=== PATIENT | female | born 1970 | race African-American/Black ===

== ENCOUNTER 2021-12-27 13:21 | Outpatient (CLI) | payer BC | END 2021-12-27 13:22 | disposition home or self-care (01) | LOC: CSHMAMMO 13:21 | PROVIDERS: ATTEND Family Medicine | DX: Z12.31 Encounter for screening mammogram for malignant neoplasm of breast (principal) | CPT/HCPCS: 77063; 77067 ==

== ENCOUNTER 2022-12-21 22:16 | Observation (INO) | payer BC ==
[2022-12-21] MEDS ORDERED: Calcium Carbonate 500 MG ChewTAB PO PRN (22:49)
[2022-12-21] MEDS ORDERED: HYDROcodone/Acetaminophen 5/325 mg Tablet PO PRN (22:49)
[2022-12-21] MEDS ORDERED: Ondansetron PF 4 MG/2 ML Vial IVP PRN (22:49)
[2022-12-21] MEDS ORDERED: Acetaminophen 325 MG TAB PO PRN (22:49)
[2022-12-21] MEDS ORDERED: Senokot S 8.6-50 MG TAB PO PRN (22:49)
[2022-12-21] MEDS ORDERED: Lactated Ringer's 500 ML IV SCH (23:00)
[2022-12-21 23:08] VITALS: BMI 28.8
[2022-12-22 04:52] LABS: Anion Gap 14 mmol/L (10-20); BUN (Urea Nitrogen) 7 mg/dL (9.8-20.1); Calc. Creatinine Clearance 106 mL/min (70-130); Calcium 9.2 mg/dL (7.8-10.44); Carbon Dioxide 21 mmol/L (22-29); Chloride 107 mmol/L (98-107); Estimated GFR 100; Glucose 86 mg/dL (70-105); Magnesium 1.9 mg/dL (1.6-2.6); Potassium 3.7 mmol/L (3.5-5.1); Sodium 138 mmol/L (136-145)
[2022-12-22 05:13] LABS: Free T4 (Free Thyroxine) 1.05 ng/dL (0.70-1.48); Thyroid Stimulating Hormone 1.8515 uIU/mL (0.35-4.94)
[2022-12-22] MEDS ORDERED: Apixaban 5 MG TAB PO SCH (09:00)
[2022-12-22] MEDS ORDERED: FLU VACC QS2023-24(6MOS UP)/PF 60 MCG/0.5 ML SYRINGE IM ONE (09:00)
[2022-12-22 11:53] VITALS: BP 116/66; TEMP 97.9
== END 2022-12-22 13:55 | disposition home or self-care (01) ==
LOC: CSHTELE 22:16 → INTOOBSV 22:16
PROVIDERS: ADMIT Student in an Organized Health Care Education/Training Program; ATTEND Internal Medicine
DX: I26.99 Other pulmonary embolism without acute cor pulmonale (principal); E03.9 Hypothyroidism, unspecified; E87.1 Hypo-osmolality and hyponatremia; Z78.9 Other specified health status
CPT/HCPCS: 36415; 80048; 83735; 84439; 84443; 90471; 90686; 93970; G0008; G0378; J7120

== ENCOUNTER 2023-01-20 15:08 | Outpatient (CLI) | payer BC | END 2023-01-20 15:09 | disposition home or self-care (01) | LOC: CSHMAMMO 15:08 | PROVIDERS: ATTEND Family Medicine | DX: Z12.31 Encounter for screening mammogram for malignant neoplasm of breast (principal) | CPT/HCPCS: 77063; 77067 ==

== ENCOUNTER 2024-01-22 13:51 | Outpatient (CLI) | payer BC | END 2024-01-22 13:52 | disposition home or self-care (01) | LOC: CSHMAMMO 13:51 | PROVIDERS: ATTEND Family Medicine | DX: Z12.31 Encounter for screening mammogram for malignant neoplasm of breast (principal) | CPT/HCPCS: 77063; 77067 ==

== ENCOUNTER 2025-01-24 14:08 | Outpatient (CLI) | payer BC | END 2025-01-24 14:09 | disposition home or self-care (01) | LOC: CSHMAMMO 14:08 | PROVIDERS: ATTEND Family Medicine | DX: Z12.31 Encounter for screening mammogram for malignant neoplasm of breast (principal) | CPT/HCPCS: 77063; 77067 ==